=== PATIENT | female | born 1990 | race Caucasian/White ===

== ENCOUNTER 2017-04-22 21:11 | Observation (INO) ==
[2017-04-22] MEDS ORDERED: NALOXONE 0.4 MG/ML INJECTION IVP ONE (21:28)
[2017-04-22] MEDS ORDERED: NS 1,000 ML IV ONE (21:28)
[2017-04-22] MEDS ORDERED: HALOPERIDOL 5 MG/ML INJECTION IM ONE (21:33)
[2017-04-22] MEDS ORDERED: SALINE FLUSH 10ml SYRINGE IVF PRN (22:10)
[2017-04-22] MEDS: NS 1,000 ML IV SCH (23:23)
--- NOTE | 2017-04-22 23:49 | Emergency Department Report ---
General Adult HPI - General Chief complaint: Medical Emergency Stated complaint: Psych Time Seen by Provider: 04/22/17 21:27 - History of Present Illness HPI narrative: 26-year-old female brought in by EMS after being tased by police. She had been running loose on the freeway, partially clothed and engaged with police and ultimately had to be tased prior to being handcuffed. She was unable to make sense with conversation and could not give her name. She gave 3 or 4 different names with very bizarre spellings. No past medical history is known, and she is under the influence of unknown substances. - Related Data Home Medications Medication Instructions Recorded Confirmed No known Home medications [No home 04/22/17 04/22/17 meds] Allergies Allergy/AdvReac Type Severity Reaction Status Date / Time Unable to Assess Allergy Verified 04/22/17 21:26 Review of Systems Limitations: ROS unobtainable due to patient's medical condition [facility] Medical History Updates: Unable to obtain due to patient's overdose Surgical History: Unable to obtain due to patient's overdose Family History: Unable to obtain due to patient's overdose - Social History Smoking status: Unknown if ever smoked Substance use type: unknown Last drink: unknown Current residence: Homeless Physical Exam - Limitations Limitations: altered mental status - General General appearance: appears intoxicated, other (patient has noted horizontal nystagmus. When asked questions she jumps to a parallel tangent. For example when asked if she hurt anywhere, she responded that of course she heard me. She did this several times changing the meaning of words or trans-literating to a different word.) - Normal Exams: Head:: Normocephalic without trauma Neck:: Full range of motion, without adenopathy, JVD, bruits or thyromegaly Chest/Respirations:: Clear all barry, with good airflow, and symmetry bilaterally Cardiovascular:: Regular rate and rhythm, without murmur or gallop, Pulses 2+ all extremities, capillary refill, <2 seconds all extremities Abdomen:: Bowel sounds positive, soft, non-tender, non-distended, no hepatosplenomegaly, masses or bruits noted Neurological:: and oriented, cranial nerves, motor/sensory/cerebellar, exams w/ o gross deficits, to observation Course Vital Signs Temperature 98.1 F 04/22/17 21:12 Pulse Rate 137 H 04/22/17 21:12 Respiratory Rate 20 04/22/17 21:12 Blood Pressure 196/106 H 04/22/17 21:12 Pulse Oximetry 100 04/22/17 21:12 Temperature 98.1 F 04/22/17 21:12 Pulse Rate 131 H 04/22/17 21:30 Respiratory Rate 20 04/22/17 21:12 Blood Pressure 160/90 H 04/22/17 21:30 Pulse Oximetry 98 04/22/17 21:30 Medical Decision Making - MDM Narrative Medical decision making narrative: Patient required one-on-one care with intensive care time of 35 minutes in both direct care and ordering and discussing case with accepting physician. Patient initially was handcuffed, she received Haldol 5 mg and Ativan 2 mg IM and was able to relax. Prior to this she could not sit still and ran on with flight of thought. Labs returned with normal white count, positive tox screen for methamphetamine, benzodiazepine, THC, cocaine. I assume she is under the influence of a synthetic mixed with this. She is stable at this time will be admitted to ICU under hospitalist care with continuation of sedation as needed until she is sober and able to control herself. At this time she is a danger to herself if released. - Lab Data Result diagrams: 04/22/17 21:45 04/22/17 21:45 Lab Results 04/22/17 04/22/17 04/22/17 Range/Units 21:45 21:45 21:45 WBC 8.4 (4.5-11.0) T/MM3 RBC 5.08 (4.00-5.20) M/MM3 Hgb 15.9 (12-16) GM/DL Hct 44.6 (36-46) % MCV 87.8 (80-100) UM3 MCH 31.3 (26-34) UUG MCHC 35.7 (31-37) GM/DL RDW Std Deviation 38.4 (36.9-50.2) FL Plt Count 367 (130-400) T/MM3 MPV 8.7 L (9.4-12.4) UM3 Immature Gran % (Auto) 0.5 (0.0-0.5) % Neut % (Auto) 72.5 H (33-66) % Lymph % (Auto) 19.6 L (23-45) % [place] % (Auto) 4.7 (0-9.0) % Eos % (Auto) 2.0 (0-4) % Baso % (Auto) 0.7 (0-2) % Neut # 6.1 (1.8-7.7) T/MM3 Lymph # 1.7 (1-4.8) T/MM3 [place] # 0.4 (0-0.8) T/MM3 Eos # 0.2 (0-0.5) T/MM3 Baso # 0.1 (0-0.2) T/MM3 Abs Immat Gran (auto) 0.04 H (0.00-0.03) T/MM3 Turbidity < 20 (0-20) Sodium 144 (134-144) MEQ/L Potassium 3.5 L (3.6-5) MEQ/L Chloride 107 (98-107) MEQ/L Carbon Dioxide 20 L (22-30) MEQ/L Anion Gap 17 H (5-15) MEQ/L BUN 20.0 H (7-17) MG/DL Creatinine 0.9 (0.7-1.2) MG/DL GFR Calculation 75 BUN/Creatinine Ratio 22 (6-26) RATIO Glucose 159 H (65-110) MG/DL Calculated Osmolality 283 H (261-280) MOSM/KG Calcium 10.3 H (8.4-10.2) MG/DL Total Bilirubin 1.40 H (0.20-1.30) MG/DL Icterus Index < 2 (0-7) AST 25 (14-36) U/L ALT 31 (9-52) U/L Alkaline Phosphatase 86 (38-126) U/L Total Protein 8.4 H (6.3-8.2) G/DL Albumin 5.2 H (3.5-5.0) G/DL Globulin 3.2 (2.4-3.6) G/DL Albumin/Globulin Ratio 1.6 (1.1-2.2) RATIO Specimen Hemolysis < 15 (0-25) Ur Collection Type Urine Color (YELLOW) Urine Clarity Urine pH (5.0-8.0) Ur Specific [place] (1.015-1.025) Urine Protein (NEGATIVE) Urine Glucose (UA) (NEGATIVE) Urine Ketones (NEGATIVE) Urine Occult Blood (NEGATIVE) Urine Nitrate (NEGATIVE) Urine Bilirubin (NEGATIVE) Urine Urobilinogen (NORMAL) EU/DL Ur Leukocyte Esterase (NEGATIVE) Urine RBC (0-3) /HPF Urine WBC (0-5) /HPF Ur Squamous Epith Cells Urine Bacteria (NEGATIVE) Urine Trichomonas Ur Culture Indicated? Salicylates < 1.0 L (2-20) MG/DL Urine Opiates Screen ng/mL Ur Oxycodone Screen ng/mL Urine Methadone Screen ng/mL Ur Propoxyphene Screen ng/mL Acetaminophen < 10 L (10-30) UG/ML Ur Barbiturates Screen ng/mL U Tricyclic Antidepress ng/mL Ur Phencyclidine Scrn ng/mL Ur Amphetamines Screen ng/mL U Methamphetamines Scrn ng/mL U Benzodiazepines Scrn ng/mL Urine Cocaine Screen ng/mL U Cannabinoids Screen ng/mL Ur Drug Screen Confirm Alcohol, Quantitative <10 (<10) MG/DL 04/22/17 04/22/17 04/22/17 Range/Units 22:35 22:35 22:35 WBC (4.5-11.0) T/MM3 RBC (4.00-5.20) M/MM3 Hgb (12-16) GM/DL Hct (36-46) % MCV (80-100) UM3 MCH (26-34) UUG MCHC (31-37) GM/DL RDW Std Deviation (36.9-50.2) FL Plt Count (130-400) T/MM3 MPV (9.4-12.4) UM3 Immature Gran % (Auto) (0.0-0.5) % Neut % (Auto) (33-66) % Lymph % (Auto) (23-45) % [place] % (Auto) (0-9.0) % Eos % (Auto) (0-4) % Baso % (Auto) (0-2) % Neut # (1.8-7.7) T/MM3 Lymph # (1-4.8) T/MM3 [place] # (0-0.8) T/MM3 Eos # (0-0.5) T/MM3 Baso # (0-0.2) T/MM3 Abs Immat Gran (auto) (0.00-0.03) T/MM3 Turbidity (0-20) Sodium (134-144) MEQ/L Potassium (3.6-5) MEQ/L Chloride (98-107) MEQ/L Carbon Dioxide (22-30) MEQ/L Anion Gap (5-15) MEQ/L BUN (7-17) MG/DL Creatinine (0.7-1.2) MG/DL GFR Calculation BUN/Creatinine Ratio (6-26) RATIO Glucose (65-110) MG/DL Calculated Osmolality (261-280) MOSM/KG Calcium (8.4-10.2) MG/DL Total Bilirubin (0.20-1.30) MG/DL Icterus Index (0-7) AST (14-36) U/L ALT (9-52) U/L Alkaline Phosphatase (38-126) U/L Total Protein (6.3-8.2) G/DL Albumin (3.5-5.0) G/DL Globulin (2.4-3.6) G/DL Albumin/Globulin Ratio (1.1-2.2) RATIO Specimen Hemolysis (0-25) Ur Collection Type Urine, clean catch Urine Color Yellow (YELLOW) Urine Clarity Sl cloudy Urine pH 6.0 (5.0-8.0) Ur Specific [place] 1.020 (1.015-1.025) Urine Protein 1+ A (NEGATIVE) Urine Glucose (UA) Negative (NEGATIVE) Urine Ketones 1+ A (NEGATIVE) Urine Occult Blood Trace-intact (NEGATIVE) Urine Nitrate Negative (NEGATIVE) Urine Bilirubin Negative (NEGATIVE) Urine Urobilinogen 0.2 (NORMAL) EU/DL Ur Leukocyte Esterase 2+ A (NEGATIVE) Urine RBC None seen (0-3) /HPF Urine WBC 30-50 H (0-5) /HPF Ur Squamous Epith Cells 20-50 Urine Bacteria None seen (NEGATIVE) Urine Trichomonas Present Ur Culture Indicated? Cult not indicated Salicylates (2-20) MG/DL Urine Opiates Screen Negative ng/mL Ur Oxycodone Screen Negative ng/mL Urine Methadone Screen Negative ng/mL Ur Propoxyphene Screen Negative ng/mL Acetaminophen (10-30) UG/ML Ur Barbiturates Screen Negative ng/mL U Tricyclic Antidepress Negative ng/mL Ur Phencyclidine Scrn Negative ng/mL Ur Amphetamines Screen Positive ng/mL U Methamphetamines Scrn Positive ng/mL U Benzodiazepines Scrn Positive ng/mL Urine Cocaine Screen Positive ng/mL U Cannabinoids Screen Positive ng/mL Ur Drug Screen Confirm Sent out Alcohol, Quantitative (<10) MG/DL [place]position [place] [facility] [place] Condition: Stable Prescriptions: No Action No known Home medications [No home meds] 0 #0 misc Time of Disposition: 23:57 - Seen By: physician
[2017-04-23 00:58] VITALS: BMI 25.2
--- NOTE | 2017-04-23 01:02 | History & Physical Report ---
<Carroll Enriquez I - Last Filed: 04/23/17 00:56> History of Present Illness Date: 04/23/17 Chief complaint: Altered Mental Status, brought in by police HPI: Kaitlyn is a 26 year old white female who was brought in restraints by an off- duty Legal Support Manager who [place]. She ran from him and was reportedly tazed in order to apprehend her and assure her safety. Little else is known about how she got there or what her intentions were. She did tell the nurse and I that she lives in [place]. She did not offer more information. In the Er, she was quite altered and was unable to give a history at that time, either (see notes). She had tangiential thoughts and answers and was altered, hypertensive and tachycardic. She was given 5 mg IV Haldol and 2 mg IV Ativan which resolved the majority of the above. She is admitted for close monitoring after polysubstance overdose (UDS + for meth, cocaine, THC and benzos) and further elucidation of an appropriate disposition in the morning. Review of Systems ROS unobtainable: due to mental status (She did not answer the majority of questions asked by myself or the RN at this time. She did indicate previously to the RN that she had not been sick lately and is not believed to be on any prescription medications or have any chronic medical illnesses) [facility] Medical History Updates: Unable to obtain due to patient's overdose Surgical History: Unable to obtain due to patient's overdose - Social History Smoking status: Current every day smoker Substance last used: hours (ago) (As per HPI) Medications Home Medications Medication Instructions Recorded Confirmed Type No known Home medications [No home 04/22/17 04/22/17 History meds] Allergies Allergy/AdvReac Type Severity Reaction Status Date / Time No Known Allergies Allergy Verified 04/23/17 07:58 Exam Vital Signs: Temperature 98.1 F 04/22/17 21:12 Pulse Rate 105 H 04/23/17 00:00 Respiratory Rate 18 04/23/17 00:00 Blood Pressure 125/90 H 04/23/17 00:00 Pulse Oximetry 95 04/23/17 00:00 Telemetry Rhythm: Sinus Tachycardia - Constitutional Present: no acute distress, somnolent - Routine HEENT Exam Head: Present: normocephalic, abrasion (Superficial abrasion R posterior zygoma and mandible) Eye: Present: EOMI (Grossly. Eyes closed for the majority of assessment) ENT: Present: mucous membranes moist - Routine Neck Exam Present: supple. Absent: JVD - Routine Respiratory Exam Present: CTA bilaterally. Absent: accessory muscle use, respiratory distress Comments: RN stated some end-expiratory wheeze was noted on her initial assessment - Routine Cardiovascular Exam Present: RRR - Routine Abdominal Exam Present: soft, normoactive bowel sounds, non distended, non tender - Routine Extremities Exam Present: no edema. Absent: cyanosis, clubbing - Routine Neurological Exam Present: altered mental status (globally depressed, detailed neuro exam not obtainable at this time) - Routine Psychiatric Exam Present: depressed Comments: Currently flat and globally depressed. As HPI - Additional findings Additional findings: Examination performed using telemedicine equipment with the assistance of the bedside RN in the CCU. Results - Labs CBC & Chem 7: 04/22/17 21:45 04/22/17 21:45 Assessment and Plan (1) Polysubstance overdose Current visit: Yes Status: Acute Pt is a 26 year old presumed previously healthy who presented altered as above, with multiple illicit substances present on UDS. No apparent injury or exposure related issues. Plan to monitor closely in CCU overnight on telemetry , continue prn haldol and ativan. SCD's for dvt prophylaxis. Case management consult requested in the morning to further assist with elucidation of the most appropriate disposition. Will provide further sympommatic, supportive, and diagnostic cares as the current workup, or changes in her clinical scenerio, indicate. 04/23/17 01:09 DVT Prophylaxis: SCD's Hospital Course Summary Disclaimer: The visit summary below is not to be considered part of the above Progress Note. <Sharonda Steen - Last Filed: 04/23/17 15:17> History of Present Illness Date: 04/23/17 Exam Vital Signs: Temperature 97.6 F 04/23/17 10:00 Pulse Rate 68 04/23/17 11:00 Respiratory Rate 39 H 04/23/17 11:00 Blood Pressure 128/58 04/23/17 11:00 Pulse Oximetry 99 04/23/17 11:00 Height/Weight/BMI: Height 1.65 m Weight 68.9 kg Body Mass Index 25.2 Results - Labs CBC & Chem 7: 04/23/17 05:07 04/23/17 05:07 Assessment and Plan (1) Polysubstance overdose Current visit: Yes Status: Acute Resuscitation Status: Full Code Assessment and Plan: Dr. Enriquez's note reviewed. Nnifa interviewed and examined. CC: Altered mental status HPI: Kaitlyn is a 26 year old white female who was brought in restraints by an off-duty Legal Support Manager who apparently [place] dressed. She ran from him and was reportedly tased in order to apprehend her and assure her safety. The patient initially provided 3 or 4 different names with bizarre spellings. Patient offers little historical information saying only that she got out of a car on her own accord and ran from the officer because she didn't know who he was. She did tell staff that she lives in [place]. In the ER, she was quite altered and was unable to give a history at that time (see notes). She had tangiential thoughts and answers and was altered, hypertensive and tachycardic. She was given 5 mg IV Haldol and 2 mg IV Ativan which resolved the majority of the above. She is admitted for close monitoring after polysubstance overdose (UDS + for meth, cocaine, THC and benzos) and further elucidation of an appropriate disposition in the morning. The patient denies illicit drug use but reported she wasn't surprised by the UDS findings. PH/SH/FH: agree with that recorded above by Dr. Enriquez with additions of patient describing borderline blood pressure in the past, no history of surgeries. She smokes approximately one pack of cigarettes daily and has done so for 4 years, drinks alcohol in moderate amount not further quantified, and denies illicit drug use. She shrugged when asked about family history. No PCP and no advance directives. ROS: 10 point review attempted but patient denies all symptoms asked. EXAM: General-NAD, slightly drowsy but responds to questions at time of my reassessment this morning; 97.6, 128/58, 99% saturated room air HEENT-PERRL, EOMI without nystagmus, conjunctiva clear, sclera anicteric, conjugate gaze, facial structures symmetric, oropharynx clear, neck supple and without adenopathy Lungs-respirations nonlabored, good airflow, breath sounds clear Cardiac-regular rhythm, S1-S2 Abd-soft, nontender, bowel sounds present Ext-without edema Skin-small bruises on the hands and wrists, no evidence of wounds Neuro-moves all extremities well, sensation intact 4 extremities, EOMI, facial structure symmetric Psych-withdrawn, slightly suspicious DATA: CBC unremarkable, chemistries this morning unremarkable with creatinine 0.7. Bilirubin 1.4 but remainder of liver enzymes normal. Urinalysis with 30-50 wbc's, 20-50 epithelial cells, and Trichomonas present. UDS positive for amphetamine/methamphetamine, cocaine, and marijuana. A/P: Altered mental status Polysubstance abuse Hypertension, transient Trichomonas Mental status is clearing progressively based on description provided by the emergency room and Dr. Enriquez. Patient is providing limited history after observation and IV fluids over the past 12-15 hours. Psychiatric evaluation has been requested. The patient is evasive and does not acknowledge drug use or provide any indication as to why [place] and bad weather. Blood pressure has stabilized. Trichomonas will be treated in usual manner. Patient was advised to suspect sexually-transmitted and partners will be treatment to avoid re-exposure. Hospital Course Summary Disclaimer: The visit summary below is not to be considered part of the above Progress Note.
[2017-04-23] MEDS ORDERED: ONDANSETRON 4 MG/2 ML INJECTION IVP PRN (01:25)
[2017-04-23] MEDS ORDERED: MORPHINE SULFATE 2 MG SYRINGE IVP PRN (01:25)
[2017-04-23] MEDS ORDERED: PROMETHAZINE 25 MG INJECTION IVP PRN (01:25)
[2017-04-23] MEDS: NS 1,000 ML IV SCH ×2 (07:53→16:16)
[2017-04-23] MEDS ORDERED: MetroNIDAZOLE 500 MG TABLET PO ONE (15:19)
--- NOTE | 2017-04-23 22:40 | 24 Hour Neuropsychiatic Eval ---
Date of Admission: 04/22/17 23:40 Chief complaint: "Idont know why I am here" History of Present Illness: HPI: 26 Y/O CF with a hx of polysubstance dependence BB police to the hospital. PT reportedly was founded walking in the rain poorly clothed by police. When approached the pt was agitated and had to be tazed and restrained by police. It is noted pt was positive for meth, cannabis, cocaine, and benzos. Pt was given Haldol 5mg and ATIVAN 2MG in the ED. On face to face the pt is sleepy and some what guarded by=ut is organized and able to carry on a conversation. She minimizes the events that brought her to the hospital. She does admit to recently relapsing on drugs. She denies S/I or psychosis. STRESSORS: Recent relapse on meth and cocaine. PSYCH ROS: Pt minimizes symptoms. She reports her mood is stable. Denies depression, anxiety, jesu, or psychosis. PAST PSYCH: PT states she has been diagnosed with Bipolar in the past but is not currently on meds and has not been for some time. She states she has been stable for some time. Denies ever trying to harm herself and has never been in a psychiatic hospital. SUBSTANCE ABUSE: Reports she recently relpased on drugs. Is currently in OP CD treatment at [facility] Medical History Updates: Unable to obtain due to patient's overdose Surgical History: Unable to obtain due to patient's overdose - Social History Smoking status: Current every day smoker Mental Status Exam Vitals: Last Vital Signs Temp 98.4 F 04/23/17 15:59 Pulse 80 04/23/17 18:03 Resp 27 H 04/23/17 18:03 BP 120/55 04/23/17 18:03 Pulse Ox 100 04/23/17 18:03 Height: 1.65 m Weight: 68.9 kg - Mental Status Exam Muscle Strength/Tone: Normal Dressing: Casual Grooming: Fair Attitude: Guarded Motor Activity: Normal Eye Contact: Good Speech: Normal Volume: Normal Rhythm: Appropriate Rhythm Orientation: Oriented X4 Mood: Euthymic Affect: Blunted Rate of Thoughts: Appropriate Rate Thought Organization: Organized Associations: Intact Abstract Reasoning: Intact, able to abstract Thought Content: Normal Perception/Psychotic: Perception Normal Language: Naming Intact Fund of Knowledge: Appropriate Memory: Grossly Intact Suicidal Ideation: None Homicidal Ideation: None Insight: Limited Judgement: Limited Impulse Control: Fair - Laboratory Result Diagrams: 04/23/17 05:07 04/23/17 05:07 Laboratory Results - last 24 hr 04/23/17 04/23/17 05:07 05:07 WBC 10.8 RBC 4.31 Hgb 13.5 D Hct 39.0 D MCV 90.5 MCH 31.3 MCHC 34.6 RDW Std Deviation 39.1 Plt Count 325 MPV 8.6 L Immature Gran % (Auto) 0.2 Neut % (Auto) 65.7 Lymph % (Auto) 26.0 [place] % (Auto) 6.3 Eos % (Auto) 1.3 Baso % (Auto) 0.5 Neut # 7.1 Lymph # 2.8 [place] # 0.7 Eos # 0.1 Baso # 0.1 Abs Immat Gran (auto) 0.02 Turbidity < 20 Sodium 142 Potassium 3.6 Chloride 110 H Carbon Dioxide 22 Anion Gap 10 BUN 19.0 H Creatinine 0.7 D GFR Calculation 100 BUN/Creatinine Ratio 27 H Glucose 76 Calculated Osmolality 274 Calcium 8.7 D Magnesium 2.4 H Total Bilirubin 1.40 H Icterus Index < 2 AST 28 ALT 33 Alkaline Phosphatase 60 D Total Protein 6.5 Albumin 3.8 Globulin 2.7 Albumin/Globulin Ratio 1.4 Specimen Hemolysis < 15 Assessment and Plan (1) Amphetamine abuse Problem details: with intoxication Current visit: Yes Status: Acute Continue medical management. PT is organized and denies thoughts of harm to herself or others. Pt denies psychotic symptoms and does not appear to be responding to intenal stimuli. We will continue to follow but at this time it appears to be substance related and she does not appear to meet criteria for IP psych treatment. Would recommend more intense CD treatment options.
[2017-04-24] MEDS: NS 1,000 ML IV SCH ×2 (01:03→09:03)
[2017-04-24] MEDS: NICOTINE 14 MG PATCH TD PRN ×2 (02:11→10:16)
[2017-04-24 08:08] VITALS: TEMP 98
[2017-04-24] MEDS ORDERED: NICOTINE PATCH REMOVAL TD SCH (09:00)
--- NOTE | 2017-04-24 11:56 | Discharge Instructions ---
Discharge Plan - Med Rec/Dispo Additional Instructions: For follow up with mental health: You can follow up at [facility] (Address [address], [place]. ) for a new intake. Intakes are done on a walk in basis; Mon-Fri, 8-3:30 am. Prescriptions: No Action No known Home medications [No home meds] 0 #0 misc Discharge Instructions/Outpatient Orders: Final Provider Discharge Instructions Location: Determined By Patient - Disposition 01 Discharged Home, Self-Care
[2017-04-24] MEDS ORDERED: LORazepam 1 MG TABLET PO ONE (12:33)
[2017-04-24 13:07] VITALS: BP 147/65; RESP 31; O2SAT 99
[2017-04-24 13:39] VITALS: PULSE 81
--- NOTE | 2017-04-24 17:49 | Discharge Summary ---
Discharge Information Date of admission: 04/22/17 23:40 Anticipated date of discharge: 04/24/17 Attending Physician: Sharonda Steen MD Consults: Keara Frederick Reason For Exam: erratic behavior/multi-substance abuse - Discharge Diagnosis (1) Polysubstance overdose Status: Acute - Laboratory Labs: Laboratory data on admission was minimally changed from that on 04/23. Liver enzymes notable only for bilirubin of 1.4. Trichomonas present on UA. Urine drug screen positive for amphetamines, methamphetamine, benzos, cocaine, and marijuana. 04/23/17 05:07 04/23/17 05:07 History of Present Illness HPI: Kaitlyn is a 26 year old white female who was brought in restraints by an off- duty Sales Engineer Account Manager [place]. She ran from him and was reportedly tazed in order to apprehend her and assure her safety. Little else is known about how she got there or what her intentions were. She did tell the nurse and I that she lives in [place]. She did not offer more information. In the Er, she was quite altered and was unable to give a history at that time, either (see notes). She had tangiential thoughts and answers and was altered, hypertensive and tachycardic. She was given 5 mg IV Haldol and 2 mg IV Ativan which resolved the majority of the above. She is admitted for close monitoring after polysubstance overdose (UDS + for meth, cocaine, THC and benzos) and further elucidation of an appropriate disposition in the morning. Hospital Course This is a general summary of the patient's hospital course. For more details refer to the complete medical record. Hospital course: Assessment Altered mental status Polysubstance abuse Hypertension, transient Trichomonas Hospital course Ms Trujillo was admitted to the intensive care unit and treated with IV fluids. Lorazepam was available as needed. The patient was calm throughout the hospitalization and relatively somnolent throughout. She was seen in consultation by psychiatric service who did not feel there was any intent for self-harm and recommended continued outpatient chemical dependence treatment at [facility] where patient reported she is currently in treatment. The patient was incidentally noted to have Trichomonas in the urine which was treated with single dose metronidazole. She was advised that sexual partners require treatment. Cardiac telemetry demonstrated significant sinus arrhythmia without evidence of bundle branch block or other abnormality. EKGs were unremarkable. Was recommended the patient schedule follow-up with the primary care physician to consider further cardiac assessment. On 04/24 the patient was felt stable for discharge. She remained drowsy but would awaken to voice and respond appropriately. Respirations were nonlabored with good airflow and clear breath sounds. Cardiac rhythm was regular although rate varied from the 40s to 100. Abdomen was benign. Nursing reported no behavioral problems overnight. Social work met with the patient and provided information to refer back to [facility] for continued outpatient chemical dependence treatment. Discharge Plan - Med Rec/Dispo [place] Instructions: Methamphetamine Abuse (DC) Additional Instructions: For follow up with mental health: You can follow up at [facility] (Address [address], [place]. ) for a new intake. Intakes are done on a walk in basis; Mon-Fri, 8-3:30 am. Prescriptions: No Action No known Home medications [No home meds] 0 #0 misc Discharge Instructions/Outpatient Orders: Final Provider Discharge Instructions Location: Determined By Patient - Disposition 01 Discharged Home, Self-Care
== END 2017-04-24 12:45 | disposition home or self-care (01) ==
LOC: EDBD → ED 21:11 → CCU 21:11 → EDBD 21:11 → CCU 04-23 00:24
PROVIDERS: ADMIT Internal Medicine; ATTEND Internal Medicine